=== PATIENT | female | born 1960 | race Caucasian/White ===

== ENCOUNTER 2021-09-02 11:01 | Emergency (ER) | payer OTHER, SELFPAY ==
[2021-09-02 11:02] VITALS: BP 152/86; PULSE 76; RESP 16; TEMP 36.8; O2SAT 99; BMI 21.9
--- NOTE | 2021-09-02 11:29 | EX.ED.VIS.UR ---
HPI HPI - URI History of Present Illness Chief Complaint: Cough Informant: patient Onset/Context/Timing Onset: Days Context: Gradual Onset Timing: Continuous Current Severity: Mild Maximum Severity: Mild Associated Symptoms Associated Symptoms: Positive for Nasal Congestion, Diarrhea and Productive Cough; Negative for Nausea, Vomiting, Shortness of Breath, Chest Pain and Nonproductive cough Narrative Narrative: 60-year-old female history of hypertension anxiety. Was a started feeling ill at work. She has a nonproductive cough. She had fever and chills which have resolved. She took a Covid test in the last several days which was negative. She wants to make sure she does not have pneumonia. She denies any hemoptysis. Prior similar symptoms: Yes Recent Illness/Hospitalization: No ROS ROS ED ROS Narrative Nonproductive cough. Subjective fever and chills. Loose stools. Review of Systems ROS Unobtainable: Denies due to encephalopathy Constitutional Constitutional ED: Reports chills, fever(s) and subjective; Denies sweats Eyes Eyes: Denies change in vision ENT ENT ED: Denies ear pain Cardiovascular Cardiovascular: Denies chest pain Respiratory/Chest Respiratory/Chest: Reports cough; Denies dyspnea or sputum Gastrointestinal Gastrointestinal: Reports diarrhea; Denies abdominal pain, nausea or vomiting Genitourinary Genitourinary ED: Denies dysuria Musculoskeletal Musculoskeletal: Denies myalgias Integumentary Denies rash Neurologic Neurologic: Denies headache(s) Psychiatric Psychiatric: Denies depression Endocrine Endocrinology: Denies polyuria Hematologic/Lymphatic Hematologic/Lymphatic: Denies easy bruising Allergic/Immunologic Allergic/Immunologic ED: Denies urticaria PFSH PFSH Medical History (Updated 09/02/21 @ 11:[address] Avery Zhao MD) HTN (hypertension) Home Medications amlodipine 5 mg PO DAILY 09/02/21 [History Last Taken Unknown] azithromycin [Zithromax Z-Jayson] See Rx Instructions .ROUTE .COMPLEX #6 tab 09/02/21 [Rx Last Taken Unknown] buspirone [BuSpar] 15 mg PO QHS 09/02/21 [History Last Taken Unknown] losartan 25 mg PO DAILY 09/02/21 [History Last Taken Unknown] Allergy/AdvReac Type Severity Reaction Status Date / Time No Known Allergies Allergy Verified 09/02/21 11:02 Social History Smoking Status: Never smoker EXAM Physical Exam Narrative Exam Narrative: 58-year-old female no acute distress vital signs stable afebrile. Pulse ox 99% on room air no signs of hypoxia. HEENT exam normal. Moist mucous memories. Neck nontender no JVD. Lungs clear to auscultation bilaterally. Dry cough. Heart regular rate and rhythm no murmur rate about 75. Abdomen soft nontender. Moving all 4 extremities. Calves are nontender without edema or cords. Neurologically awake and alert with no focal motor deficits. Const Vital Signs: 09/02/21 11:02 09/02/21 11:30 Temperature 98.2 F Temperature Source Temporal Pulse Rate 76 Respiratory Rate 16 Respiratory Effort Normal Non-Labored Respiratory Depth Normal Respiratory Pattern Normal Blood Pressure 152/86 H Blood Pressure Mean 108 Pulse Ox 99 Oxygen Delivery Method Room Air Positive well nourished and well developed; Negative for obese, cachectic or contractures General Appearance ED: well developed and NAD; Negative for cachectic, contractures, cyanotic, diaphoretic or pallor Nutritional Appearance: Negative for cachectic or obese HEENT Reports moist mucous membranes normocephalic and atraumatic External Ear: external ears normal Eyes PERRL and EOMs intact bilaterally Neck no lymphadenopathy, supple, no meningeal signs and no JVD General: Negative for anterior neck swelling or lymphadenopathy Resp normal respiratory effort and clear to auscultation bilaterally Auscultation: Negative for rales, rhonchi or wheezes Cardio S1 normal heart sound, S2 normal heart sound and no murmurs Rate: regular rate Rhythm: regular rhythm GI non-tender, non-distended and no masses Auscultation: normoactive bowel sounds Palpation: soft; Negative for tender or guarding Back/Spine no CVA tenderness and normal ROM General Back: Negative for CVA tenderness Cervical Spine: Negative for cervical spine tenderness Thoracic Spine / Upper Back: Negative for thoracic spinal tenderness Extremity normal to inspection and full ROM General Extremety ED: Negative for cyanosis or tenderness General Extremity: Negative for cyanosis Neuro oriented x3 Sensorium / Orientation: alert, oriented to person, oriented to place and oriented to time; Negative for orientation impaired, lethargic or stuporous Motor Exam: strength 5/5 throughout Psych mental status grossly normal Mood & Affect: Negative for depressed or tearful Skin General Skin Exam: Negative for jaundice or pallor Lesions: no lesions Rashes: no rashes MDM MDM MDM Narrative Medical decision making narrative: 60-year-old URI symptoms chest x-ray being obtained to evaluate for possible pneumonia. She is already had an outpatient Covid test which was negative. Repeat exam patient doing well at 12:10 PM and will be discharged home. We discussed her negative chest x-ray. Radiography Diagnostic Testing: Chest x-ray, portable, single view interpreted by myself shows no acute abnormality. Normal cardiac silhouette mediastinum. Discharge Plan Triage Chief Complaint: Cough ED Provider: Avery Zhao Dx/Rx/DC Orders Clinical Impression: Viral URI Instructions: ED URI, Viral, No Abx (Adult) Prescriptions: New azithromycin [Zithromax Z-Jayson] 250 mg tablet See Rx Instructions .ROUTE .COMPLEX Qty: 6 RF: 0 No Action amlodipine 5 mg Tablet 5 mg PO DAILY RF: 0 losartan 25 mg Tablet 25 mg PO DAILY RF: 0 buspirone [BuSpar] 15 mg Tablet 15 mg PO QHS RF: 0 Primary Care Provider: Jordyn Johnson NP Referrals: Jordyn Johnson [employer], [employer] [Primary Care Provider] - 1 Week if not improving Activity Restrictions/Additional Instructions: Plenty of fluids and rest. Alternate Motrin and Tylenol for body aches and fevers. You should progressively improve. If you are not improving or getting worse you may start antibiotic but more than likely this is a virus and will get better on its own. Disposition Disposition: Home, Self Care
--- NOTE | 2021-09-02 11:45 | RAD_ITS ---
HISTORY: cough. TECHNIQUE: XR Chest 1 View. # of images incl. paperwork: 1. COMPARISON: 06/16/2020. FINDINGS: CARDIOMEDIASTINAL STRUCTURES: Cardiac silhouette not enlarged. Mediastinal contour unremarkable with calcification of the aorta. LUNGS: Mild hyperinflation, suggesting COPD. Chronic linear opacities in the lung bases. PLEURA: No pleural effusion or pneumothorax. OSSEOUS STRUCTURES: Spinal osteophytes. RAD/Chest 1 View (Portable) IMPRESSION: No radiographic evidence of acute cardiopulmonary disease. Mild hyperinflation of the lungs with bibasilar scarring. at 1215 Reported and signed by: Ester Clark MD Electronically Signed: Ester Clark MD at 12:14 EST Tel , Service support ,
== END 2021-09-02 12:17 | disposition home or self-care (01) ==
LOC: ED 12:09
PROVIDERS: Emergency Provider Emergency Medicine; PCP Nurse Practitioner
DX: J06.9 Acute upper respiratory infection, unspecified (principal); I10 Essential (primary) hypertension; R19.7 Diarrhea, unspecified
CPT/HCPCS: 71045; 99282

== ENCOUNTER → 2025-06-07 | Outpatient (CLI) | payer OTHER, SELFPAY ==
--- NOTE | 2025-06-07 07:09 | BI_ITS ---
EXAM: SCRN MAMM (CAD)W/SUSHMA BILAT DATE: 06/07/2025 CLINICAL HISTORY: F, Age 64 y/o , SCRN MAMM (CAD)W/SUSHMA BILAT Routine screening TECHNIQUE: Procedure Code: [id number] Modality: MG Procedure: SCRN MAMM (CAD)W/SUSHMA BILAT COMPARISON: No priors FINDINGS: TISSUE DENSITY: The breasts are heterogeneously dense, which may obscure small masses. Bilateral Breast Mammographic Findings: No significant masses, calcifications or other abnormalities are identified. Scattered benign punctate calcifications, no suspicious findings BI/SCRN MAMM (CAD)W/SUSHMA BILAT IMPRESSION: Negative screening mammogram, no suspicious findings OVERALL FINAL ASSESSMENT BI-RADS 2: BENIGN RECOMMENDATION: Routine annual follow-up in 1 Year Additional Recommendation none A letter with findings and recommendations will be mailed to the patient. Reading Location: [id number]
== END | disposition home or self-care (01) ==
LOC: OPBI 07:07
PROVIDERS: PCP Nurse Practitioner Family; Referring Provider Nurse Practitioner Family; Visit Provider Nurse Practitioner Family
DX: Z12.31 Encounter for screening mammogram for malignant neoplasm of breast (principal)
CPT/HCPCS: 77063; 77067